=== PATIENT | female | born 1935 | race American Indian/Alaskan Native ===

== ENCOUNTER 2017-10-02 11:30 | Day surgery (SDC) | payer MEDICARE ==
[~2017-10-02 11:30] MED LIST: IOPIDINE ONE; MYDRIACYL ONE; NEOFRIN ONE
[2017-10-02] MEDS ORDERED: MYDRIACYL OD ONE (12:00)
[2017-10-02] MEDS ORDERED: NEOFRIN OD ONE (12:00)
[2017-10-02] MEDS ORDERED: IOPIDINE OD ONE (12:00)
[2017-10-02 13:41] VITALS: BP 150/80
== END 2017-10-02 13:02 | disposition home or self-care (01) ==
LOC: OR 11:30
PROVIDERS: ATTEND Specialist
DX: H26.491 Other secondary cataract, right eye (principal); I10 Essential (primary) hypertension; E78.00 Pure hypercholesterolemia, unspecified; F03.90 Unspecified dementia, unspecified severity, without behavioral disturbance, psychotic disturbance, mood disturbance, and anxiety; Z90.710 Acquired absence of both cervix and uterus; Z98.890 Other specified postprocedural states